=== PATIENT | male | born 1970 | race Caucasian/White ===

== ENCOUNTER 2025-04-23 16:17 | Emergency (ER) | payer BC, SELFPAY ==
[2025-04-23 16:18] VITALS: BP 122/75
[2025-04-23 16:51] LABS: % Basophils 0.5 % (0-2); % Eosinophils 0.5 % (0-6); % Immature Granulocytes 0.3 % (0-0.5); % Lymphocytes 11.8 % (20.5-51.1); % Monocytes 5.9 % (1.7-9.3); Absolute Basophils 0.1 10^3/uL (0-0.2); Absolute Eosinophils 0.1 10^3/uL (0-0.7); Absolute Lymphocytes 1.1 10^3/uL (1.2-3.4); Absolute Monocytes 0.6 10^3/uL (0.1-0.6); Absolute Neutrophils 7.7 10^3/uL (1.4-6.5); Hematocrit 41.7 % (39.0-52.0); Hemoglobin 13.7 g/dL (13.0-18.0); Mean Corp Hgb Conc. 32.9 g/dL (33.0-37.0); Mean Corpuscular Hgb 27.2 pg (27.0-31.0); Mean Corpuscular Volume 82.9 fL (80.0-94.0); Nucleated Red Blood Cells % 0 % (-); Platelet Count 223 10^3/uL (130-400); Red Blood Cell Count 5.03 10^6/uL (4.70-6.10); Red Cell Dist. Width 13.2 % (11.5-14.5); White Blood Cell Count 9.5 10^3/uL (4.8-10.8)
[2025-04-23 17:01] LABS: ALT (SGPT) 16 U/L (0-50); AST (SGOT) 25 U/L (17-59); Albumin 4.6 g/dl (3.5-5.0); Alkaline Phosphatase 57 U/L (38-126); Blood Urea Nitrogen 17 mg/dl (9-20); Calcium 9.4 mg/dl (8.4-10.2); Carbon Dioxide 27 mmol/L (22-30); Chloride 107 mmol/L (98-107); Glucose 139 mg/dl (70-99); Potassium 4.5 mmol/L (3.5-5.1); Sodium 140 mmol/L (135-145); Total Bilirubin 0.6 mg/dl (0.2-1.3); Total Protein 7.5 g/dl (6.3-8.2); eGFR > 60.00
[2025-04-23 17:13] LABS: Troponin I < 0.012 ng/ml
[2025-04-23 18:18] VITALS: BMI 24.2
--- NOTE | 2025-04-23 18:49 | ED.GENMED ---
History of Present Illness
General
Chief Complaint: Chest Pain
Source: patient
Exam Limitations: none
Time Seen by Provider: 04/23/25 18:48
History of Present Illness
History of Present Illness:
At about 8 AM today patient noted upper midline sternal chest pain with some radiation to the lower neck. Somewhat mildly short of breath with it and mild pain with swallowing. No shearing pain no radiation to the back or arms. No nausea or
vomiting. No history of similar symptoms. No trauma. Patient ran for 30 minutes last evening without difficulty. He play soccer regularly without issues. He has no cardiac risk factors. Symptoms have been persistent throughout the day and have
gotten slightly worse throughout the day.
Past History
Past History
ED Past Medical History: None
ED Past Surgical History: Other (Hernia repair)
Social History
Tobacco: Non-smoker
Review of Systems
Review of Systems
Allergies reviewed?: Yes
Constitutional: Denies fever
Respiratory: Denies cough or hemoptysis
Cardiac: Denies syncope
ABD/GI: Denies abdominal pain
Phy Exam
Physical Exam
Physical Exam:
GENERAL: Alert and oriented in no apparent distress
EYE: Orbits normal.
NECK: Supple. Thyroid not palpable. No neck swelling. Speech normal.
ENT: Pharynx without erythema. No drooling or stridor
CARDIAC: Regular rate and rhythm without any obvious murmurs.
LUNGS: Clear breath sounds,normal
ABDOMEN: Soft, without focal tenderness or distention
NEUROLOGICAL: Alert and oriented , grossly non-focal
SKIN: Warm and dry, no rash or lesion, no discoloration, skin intact.
MUSCULOSKELETAL: No edema,no deformity.Good color
PSYCH: Normal and appropriate interaction.
Scores
Heart Score for Chest Pain Patients
STEMI patient?: No
History: Slightly or Non-Suspicious
ECG: Normal
Age: >45 - <65 years
Risk Factors: No Risk Factors
Troponin: </= Normal Limit
Heart Score for Chest Pain Patients: 1
Heart Score Risk: 2.5% MACE over next 6 weeks
Course
Orders/Labs/Results
Orders:
Orders
04/23/25 16:21
Electrocardiogram (*1) Urgent
Reason for Study: Chest Pain
EKG- Treatment ONCE
04/23/25 16:38
Complete Blood Count/With Diff Urgent
Comprehensive Metabolic Panel Urgent
TSH Reflex To Free T4 Urgent
Comment: ADD ON
Troponin I Urgent
04/23/25 18:59
Add On- LAB Urgent
Tests Added?: tsh reflex t4
04/23/25 19:00
CT Chest Angio W/wo Iv Contras Urgent
Comment:
Reason For Exam: Upper chest pain 80 radiating to the neck
Abnormal Lab Results
04/23/25
16:38
MCHC 32.9 L g/dL
(33.0-37.0)
Absolute Neuts (auto) 7.7 H 10^3/uL
(1.4-6.5)
Absolute Lymphs (auto) 1.1 L 10^3/uL
(1.2-3.4)
Neutrophils % 81.0 H %
(42.2-75.2)
Lymphocytes % 11.8 L %
(20.5-51.1)
Glucose 139 H mg/dl
(70-99)
04/23/25 16:38
04/23/25 16:38
Vital Signs
Initial and Last Documented VS:
Initial Vital Signs
Temp Pulse Resp BP Pulse Ox
98.3 F 61 16 122/75 100
04/23/25 16:18 04/23/25 16:18 04/23/25 16:18 04/23/25 16:18 04/23/25 16:18
Last Documented Vital Signs
Temp Pulse Resp BP Pulse Ox
98.3 F 59 15 122/75 98
04/23/25 16:18 04/23/25 18:15 04/23/25 18:15 04/23/25 16:18 04/23/25 18:15
MDM/Problems Addressed
Differential Diagnosis Includes:
Very low suspicion for cardiac. Symptoms started at 8 AM. They have been persistent throughout the day with a negative troponin and normal EKG 8+ hours after his symptoms started. In addition patient has no risk factors. Exercises regularly and
even around last evening without issues. Because of the length of time of symptoms, I do not feel repeat troponin testing is warranted. Vascular etiology has to be considered although unlikely. CT chest will be done. Highly doubt pulmonary
emboli. No leg pain no leg swelling. No hypoxia no tachycardia. Possibly reflux. There is some increased pain with breathing and swallowing. Patient is very nontoxic clinically
*Pulse Oximetry
Patient hypoxic: no (98%)
Comment: 98%
*EKG
Interpreted by ED Provider?: Yes
Interpretation: abnormal
Comparison EKG: no comparison EKG present
Heart Rate: 56
Rate: bradycardiac
Rhythm: sinus
[place]: normal axis
Interval: normal interval
QRS Pattern: normal QRS
Ischemia: no ischemia
*Monitoring Coordinator Interpretation
Rate: normal
Interpretation: normal
Heart Rate: 66
Rhythm: sinus
*Critical Care Note
Total Time (30-74mins, 75-104mins- exclusive of procedures): Not Applicable
Update Note
Update Note:
Patient with stable CT findings. Given copy of report. Will follow-up with her vascular for completeness. As for the symptoms again, they have been continuous since 8 AM with normal troponin 8+ hours later. Exercises without issues. Ran last
evening. Minimal risk factors. Stable for discharge to follow-up
ED Attending Note
-
Portions of this chart may have been created with voice recognition software.� Occasional wrong word or��sound alike� substitutions may have occurred due to the inherent limitations of voice recognition software.
Discharge Plan
Departure
Patient Disposition: Home (Routine Discharge)
Date of Disposition: 04/23/25
Time of Disposition: 21:29
Patient with high blood pressure during this ER visit?: Yes
Discharge Problem:
Upper anterior chest pain
Instructions: Chest Pain CBC Follow Up, BLOOD PRESSURE
Prescriptions:
No Action
cephalexin [Keflex] 500 MG capsule
500 mg PO BID Qty: 14 0RF
Referrals:
Jere Hancock III, MD [Active, Vascular Surgery] - Next open appointment
UNKNOWN - PT DOES,NOT KNOW [Family Provider]
Interventions
Interventions:
*Risk Screen - Suicide Last Done: 04/23/25 16:20
*General Assessment Last Done: 04/23/25 18:19
*Neglect/Abuse Screening Last Done: 04/23/25 16:20
*ED- Fall Risk Assessment Last Done: 04/23/25 18:18
*ED COVID-19 Vaccine History Last Done: 04/23/25 18:18
ED- Cardiac Assessment Last Done: 04/23/25 20:37
Discharge Date and Time
Print Language: AMHARIC
[2025-04-23 19:05] VITALS: BP 107/56
[2025-04-23 19:42] VITALS: BP 111/75
[2025-04-23 20:00] VITALS: BP 114/74
[2025-04-23 20:14] LABS: TSH Reflex To Free T4 0.73 uIU/ml (0.47-4.68)
== END 2025-04-23 21:38 | disposition home or self-care (01) ==
LOC: EMR 16:17
PROVIDERS: Emergency Medicine; EMERGENCY PHYSICIAN Emergency Medicine
DX: R07.89 Other chest pain (principal); R03.0 Elevated blood-pressure reading, without diagnosis of hypertension
CPT/HCPCS: 99285; 71275; 80053; 84443; 84484; 85025; 93005; Q9967

== ENCOUNTER → 2025-11-18 15:45 | Outpatient (REF) | payer BC, SELFPAY | LOC: RAD 15:45 | PROVIDERS: ATTENDING PHYSICIAN Student in an Organized Health Care Education/Training Program | DX: G89.29 Other chronic pain (principal); M54.50 Low back pain, unspecified | CPT/HCPCS: 72110 ==